=== PATIENT | female | born 1955 | race American Indian/Alaskan Native ===

== ENCOUNTER 2020-01-30 10:41 | Emergency (ER) | payer MEDICARE ==
--- NOTE | 2020-01-30 11:08 | Emergency Department Report ---
ED Neuro Deficit HPI - General Stated Complaint: STROKE Time Seen by Provider: 01/30/20 10:46 Source: patient, EMS, old records reviewed Mode of arrival: Stretcher Limitations: Altered Mental Status - History of Present Illness Initial Comments: Mrs. Dorantes is a 64 yo female with hx of IDD, DM, gait disorder, GERD, overactive bladder, breast CA, OA, pseudobulbar affect disorder, latent TB who presents from day program via EMS with lethargy, facial droop and slurred speech. Patient is currently nonverbal but will follow commands. Last well- known time 8:30 AM -: This morning Location: speech, left face Place: other (Symptoms discovered at PCPs office) Severity: moderate Quality: weak Improves With: none Worsens With: none Context: sudden onset - Related Data Home Medications: Home Medications Medication Instructions Recorded Confirmed Last Taken Divalproex Sodium [Divalproex 500 mg PO BID 04/14/16 01/30/20 09/30/16 Sodium ER] Dextromethorphan HBr/Quinidine 1 cap PO BID 09/30/16 01/30/20 09/30/16 [Nuedexta 20-10 mg Capsule] Docusate Sodium [Move It Along] 100 mg PO BID 09/30/16 01/30/20 09/30/16 Omeprazole 40 mg PO QDAY 09/30/16 01/30/20 09/30/16 Pravastatin Sodium 40 mg PO QDAY 09/30/16 01/30/20 09/30/16 Previous Rx's Medication Instructions Recorded Last Taken Type Buspirone HCl 10 mg PO TID #90 12/24/15 09/30/16 Rx Divalproex Sodium [Divalproex 250 mg PO BID #60 tab.er.24h 12/24/15 09/30/16 Rx Sodium ER] LORazepam [Ativan] 0.5 mg PO BID #60 tablet 12/24/15 09/30/16 Rx LORazepam [Ativan] 1 mg PO QDAY #30 tablet 12/24/15 09/29/16 Rx Meloxicam 15 mg PO QDAY #30 tablet 12/24/15 09/30/16 Rx Oxybutynin Xl [Ditropan Xl] 10 mg PO DAILY #30 tablet 12/24/15 09/30/16 Rx Quetiapine Fumarate [SEROquel XR] 200 mg PO TID #90 tab.er.24h 12/24/15 09/30/16 Rx hydroCHLOROthiazide [HCTZ] 12.5 mg PO QDAY #30 capsule 12/24/15 09/30/16 Rx metFORMIN [Glucophage] 500 mg PO BID #60 tablet 12/24/15 09/30/16 Rx cephALEXin [Keflex] 500 mg PO Q6HR 7 Days #28 capsule 01/30/20 Unknown Rx Allergies/Adverse Reactions: Allergies Allergy/AdvReac Type Severity Reaction Status Date / Time No Known Allergies Allergy Verified 04/15/16 11:37 ED Review of Systems ROS: Stated complaint: STROKE Other details as noted in HPI Comment: Unobtainable due to pts medical conditions (Altered mental status currently nonverbal) ED Past Medical Hx - Past Medical History Previous Medical History?: Yes Hx Diabetes: Yes Hx GERD: Yes Hx Seizures: Yes Hx Dementia: Yes Hx HIV: No Additional medical history: fractured hip , mental retardation - Social History Smoking Status: Never Smoker - Medications Home Medications: Home Medications Medication Instructions Recorded Confirmed Last Taken Type Buspirone HCl 10 mg PO TID #90 12/24/15 01/30/20 09/30/16 Rx Divalproex Sodium [Divalproex 250 mg PO BID #60 tab.er.24h 12/24/15 01/30/20 09/30/16 Rx Sodium ER] LORazepam [Ativan] 0.5 mg PO BID #60 tablet 12/24/15 01/30/20 09/30/16 Rx LORazepam [Ativan] 1 mg PO QDAY #30 tablet 12/24/15 01/30/20 09/29/16 Rx Meloxicam 15 mg PO QDAY #30 tablet 12/24/15 01/30/20 09/30/16 Rx Oxybutynin Xl [Ditropan Xl] 10 mg PO DAILY #30 tablet 12/24/15 01/30/20 09/30/16 Rx Quetiapine Fumarate [SEROquel XR] 200 mg PO TID #90 tab.er.24h 12/24/15 01/30/20 09/30/16 Rx hydroCHLOROthiazide [HCTZ] 12.5 mg PO QDAY #30 capsule 01/27/16 03/04/20 11/03/16 Rx metFORMIN [Glucophage] 500 mg PO BID #60 tablet 12/24/15 01/30/20 09/30/16 Rx Divalproex Sodium [Divalproex 500 mg PO BID 04/14/16 01/30/20 09/30/16 History Sodium ER] Dextromethorphan HBr/Quinidine 1 cap PO BID 09/30/16 01/30/20 09/30/16 History [Nuedexta 20-10 mg Capsule] Docusate Sodium [Move It Along] 100 mg PO BID 09/30/16 01/30/20 09/30/16 History Omeprazole 40 mg PO QDAY 09/30/16 01/30/20 09/30/16 History Pravastatin Sodium 40 mg PO QDAY 09/30/16 01/30/20 09/30/16 History cephALEXin [Keflex] 500 mg PO Q6HR 7 Days #28 capsule 01/30/20 Unknown Rx ED Neuro Physical Exam - General Limitations: Language Barrier, Altered Mental Status General appearance: in no apparent distress, lethargic Suspected Stroke: Yes - Head Head exam: Present: atraumatic, normocephalic - Eye Eye exam: Present: normal appearance - ENT ENT exam: Present: mucous membranes moist - Neck Neck exam: Present: normal inspection - Respiratory Respiratory exam: Present: normal lung sounds bilaterally. Absent: respiratory distress, wheezes, rales, rhonchi - Cardiovascular Cardiovascular Exam: Present: regular rate, normal rhythm, normal heart sounds. Absent: systolic murmur, diastolic murmur, rubs, gallop - GI/Abdominal GI/Abdominal exam: Present: soft, normal bowel sounds. Absent: distended, tenderness, guarding, rebound - Extremities Exam Extremities exam: Present: normal inspection - Neurological Exam Neurological exam: Present: altered - NIHSS Assessment Interval: Baseline 1a. Level of Consciousness: arousable/minor stimuli 1b. LOC Questions: aphasic 1c. LOC Commands: performs tasks correctly 2. Best Gaze: normal 3. Visual: no visual loss 4. Facial Palsy: normal symmetrical movement 5b. Motor Arm Right: no drift 5a. Motor Arm Left: no drift 6a. Motor Leg Left: no drift 6b. Motor Leg Right: no drift 7. Limb Ataxia: absent 8. Sensory: normal 9. Best Language: severe aphasia 10. Dysarthria: severe dysarthria 11. Extinction/Inattention: no abnormality Total Score: 7 Stroke Severity: Moderate Stroke - Psychiatric Psychiatric exam: Present: normal affect, normal mood - Skin Skin exam: Present: warm, dry, intact, normal color. Absent: rash ED Course Vital Signs 01/30/20 11:26 Temperature 98.1 F Pulse Rate 101 H Respiratory 23 Rate Blood Pressure 145/69 [Left] O2 Sat by Pulse 96 Oximetry - Lab Data Result diagrams: 01/30/20 11:08 01/30/20 11:08 Lab Results 01/30/20 01/30/20 01/30/20 Range/Units 11:08 11:08 11:19 WBC 12.2 H (4.5-11.0) K/mm3 RBC 3.35 L (3.65-5.03) M/mm3 Hgb 10.7 (10.1-14.3) gm/dl Hct 32.3 (30.3-42.9) % MCV 97 (79-97) fl MCH 32 (28-32) pg MCHC 33 (30-34) % RDW 15.3 H (13.2-15.2) % Plt Count 244 (140-440) K/mm3 Lymph % (Auto) 7.2 L (13.4-35.0) % [place] % (Auto) 8.3 H (0.0-7.3) % Eos % (Auto) 0.0 (0.0-4.3) % Baso % (Auto) 0.0 (0.0-1.8) % Lymph # 0.9 L (1.2-5.4) K/mm3 [place] # 1.0 H (0.0-0.8) K/mm3 Eos # 0.0 (0.0-0.4) K/mm3 Baso # 0.0 (0.0-0.1) K/mm3 Seg Neutrophils % 84.5 H (40.0-70.0) % Seg Neutrophils # 10.3 H (1.8-7.7) K/mm3 PT 12.8 (12.2-14.9) Sec. INR 0.95 (0.87-1.13) APTT 26.3 (24.2-36.6) Sec. Thrombin Time 18.0 (15.1-19.6) Sec. Sodium 140 (137-145) mmol/L Potassium 4.4 (3.6-5.0) mmol/L Chloride 98.1 (98-107) mmol/L Carbon Dioxide 22 (22-30) mmol/L Anion Gap 24 mmol/L BUN 18 H (7-17) mg/dL Creatinine 0.7 (0.7-1.2) mg/dL Estimated GFR > 60 ml/min BUN/Creatinine Ratio 26 % Glucose 116 H (65-100) mg/dL POC Glucose (70-105) Calcium 10.2 (8.4-10.2) mg/dL Total Bilirubin < 0.20 (0.1-1.2) mg/dL AST 30 (5-40) units/L ALT 36 (7-56) units/L Alkaline Phosphatase 112 (35-129) units/L Troponin T < 0.010 (0.00-0.029) ng/mL Total Protein 8.1 (6.3-8.2) g/dL Albumin 3.5 L (3.9-5) g/dL Albumin/Globulin Ratio 0.8 % 03//20 Range/Units 11:34 WBC (4.5-11.0) K/mm3 RBC (3.65-5.03) M/mm3 Hgb (10.1-14.3) gm/dl Hct (30.3-42.9) % MCV (79-97) fl MCH (28-32) pg MCHC (30-34) % RDW (13.2-15.2) % Plt Count (140-440) K/mm3 Lymph % (Auto) (13.4-35.0) % [place] % (Auto) (0.0-7.3) % Eos % (Auto) (0.0-4.3) % Baso % (Auto) (0.0-1.8) % Lymph # (1.2-5.4) K/mm3 [place] # (0.0-0.8) K/mm3 Eos # (0.0-0.4) K/mm3 Baso # (0.0-0.1) K/mm3 Seg Neutrophils % (40.0-70.0) % Seg Neutrophils # (1.8-7.7) K/mm3 PT (12.2-14.9) Sec. INR (0.87-1.13) APTT (24.2-36.6) Sec. Thrombin Time (15.1-19.6) Sec. Sodium (137-145) mmol/L Potassium (3.6-5.0) mmol/L Chloride (98-107) mmol/L Carbon Dioxide (22-30) mmol/L Anion Gap mmol/L BUN (7-17) mg/dL Creatinine (0.7-1.2) mg/dL Estimated GFR ml/min BUN/Creatinine Ratio % Glucose (65-100) mg/dL POC Glucose 102 (70-105) Calcium (8.4-10.2) mg/dL Total Bilirubin (0.1-1.2) mg/dL AST (5-40) units/L ALT (7-56) units/L Alkaline Phosphatase (35-129) units/L Troponin T (0.00-0.029) ng/mL Total Protein (6.3-8.2) g/dL Albumin (3.9-5) g/dL Albumin/Globulin Ratio % 01/30/20 11:54 EKG obtained 1149 Normal sinus rhythm rate 95 bpm normal axis normal QT interval no ST elevation - Radiology Data Radiology results: report reviewed CT head: No acute findings, AP portable chest x-ray: No acute findings - Medical Decision Making Ms. Dorantes presents with altered mental status. I and neurologist agree that no indication of TIA or CVA on current exam. enrollment manager from [facility] arrived. Collateral history was extremely helpful. Recently Ms. Dorantes has had cough. At the daycare program today she was more lethargic. It appeared that her heart rate had increased. She had difficulty transferring from the toilet to the wheelchair. She generally needs assistance with transfers and ambula tion. Mostly she is wheelchair. She is currently at her baseline. This morning she was in her normal state of health. Currently she is in her normal state of health. Patient is currently answering yes/no questions. I will prescribe cephalexin for possible bronchitis or urinary tract infection. Work-up unremarkable with exception of mild leukocytosis. Critical care attestation.: If time is entered above; I have spent that time in minutes in the direct care of this critically ill patient, excluding procedure time. ED Disposition Clinical Impression: Generalized weakness, Acute bronchitis Disposition: DC- TO HOME OR SELFCARE Is pt being admited?: No Does the pt Need Aspirin: No Condition: Stable Instructions: Weakness (ED) Prescriptions: cephALEXin [Keflex] 500 mg PO Q6HR 7 Days #28 capsule Referrals: PRIMARY CARE, [Primary Care Provider] - 3-5 Days
--- NOTE | 2020-01-30 11:18 | Consultation ---
History of Present Illness Consult date: 01/30/20 Medications and Allergies Allergies Allergy/AdvReac Type Severity Reaction Status Date / Time No Known Allergies Allergy Verified 04/15/16 11:37 Home Medications Medication Instructions Recorded Confirmed Last Taken Type Buspirone HCl 10 mg PO TID #90 12/24/15 09/30/16 09/30/16 Rx Divalproex Sodium [Divalproex 250 mg PO BID #60 tab.er.24h 12/24/15 09/30/16 09/30/16 Rx Sodium ER] LORazepam [Ativan] 0.5 mg PO BID #60 tablet 12/24/15 09/30/16 09/30/16 Rx LORazepam [Ativan] 1 mg PO QDAY #30 tablet 12/24/15 09/30/16 09/29/16 Rx Meloxicam 15 mg PO QDAY #30 tablet 12/24/15 09/30/16 09/30/16 Rx Oxybutynin Xl [Ditropan Xl] 10 mg PO DAILY #30 tablet 12/24/15 09/30/16 09/30/16 Rx Quetiapine Fumarate [SEROquel XR] 200 mg PO TID #90 tab.er.24h 12/24/15 09/30/16 09/30/16 Rx hydroCHLOROthiazide [HCTZ] 12.5 mg PO QDAY #30 capsule 12/24/15 09/30/16 09/30/16 Rx metFORMIN [Glucophage] 500 mg PO BID #60 tablet 12/24/15 09/30/16 09/30/16 Rx Divalproex Sodium [Divalproex 500 mg PO BID 04/14/16 09/30/16 09/30/16 History Sodium ER] Dextromethorphan HBr/Quinidine 1 cap PO BID 09/30/16 09/30/16 09/30/16 History [Nuedexta 20-10 mg Capsule] Docusate Sodium [Move It Along] 100 mg PO BID 09/30/16 09/30/16 09/30/16 History Omeprazole 40 mg PO QDAY 09/30/16 09/30/16 09/30/16 History Pravastatin Sodium 40 mg PO QDAY 09/30/16 09/30/16 09/30/16 History Results - Laboratory Findings CBC and BMP: 01/30/20 11:08 Assessment and Plan [facility] Date of Service: 01/30/2020 10:34:48 Impression: Encephalopathy Comments/Sign-Out: Patient is a 64 years old woman who presents to the ED after she became lethargic and the staff at the day care facility noticed slurred speech and left side weakness. On exam upon return from CT scan, patient is drowsy but able to follow simple verbal commands. There's generalized weakness but no focal findings appreciated. Non contrast CTH showed no acute abnormalities. Presentation appears more consistent with an encephalopathy. Recommend admission for further work-up. Metrics: Last Known Well: 01/30/2020 08:30:00 [facility] Notification Time: 01/30/2020 10:34:06 Arrival Time: 01/30/2020 10:41:00 Stamp Time: 01/30/2020 10:34:48 Time First Login Attempt: 01/30/2020 10:39:00 Video Start Time: 01/30/2020 10:39:00 Symptoms: Slurred speech and left side weakness NIHSS Start Assessment Time: 01/30/2020 11:04:33 Patient is not a candidate for tPA. Patient was not deemed candidate for tPA thrombolytics because of presentation less consistent with stroke. Video End Time: 01/30/2020 11:14:11 CT head showed no acute hemorrhage or acute core infarct. Clinical Presentation is not Suggestive of Large Vessel Occlusive Disease, Patient is not a Candidate for Thrombectomy ED Physician notified of diagnostic impression and management plan on 01/30/2020 11:13:00 Our recommendations are outlined below. Recommendations: Activate Stroke Protocol Admission/Order Set Stroke/Telemetry Floor Neuro Checks Bedside Swallow Eval DVT Prophylaxis IV Fluids, Normal Saline Head of Bed Below 30 Degrees Euglycemia and Avoid Hyperthermia (PRN Acetaminophen) Recommended Scan: MRI Head Without Contrast Lipid Panel to Be Obtained, if Not Done in the Last 30 Days Therapies: Physical Therapy, Occupational Therapy, Speech Therapy Assessment When Applicable Dysphaghia Screen: Swallow Evaluation, Bedside Disposition: Follow up with Teleneurology Follow up Sign Out: Discussed with Emergency Department Provider History of Present Illness: Patient is a 64 year old Female. Patient was brought by EMS for symptoms of Slurred speech and left side weakness Patient is a 64 years old woman with PMHx of psych illness who presents to ED from a day care facility after their staff noticed slurred speech and left side weakness that started at 8:30. No other history is available at this time. She has no prior history of stroke. CT head showed no acute hemorrhage or acute core infarct. Last seen normal was within 4.5 hours. There is no history of Recent Anticoagulants. There is no history of recent major surgery. Examination: 1A: Level of Consciousness - Arouses to minor stimulation + 1 1B: Ask Month and Age - Could Not Answer Either Question Correctly + 2 1C: Blink Eyes & Squeeze Hands - Performs Both Tasks + 0 2: Test Horizontal Extraocular Movements - Normal + 0 3: Test Visual Armendariz - No Visual Loss + 0 4: Test Facial Palsy (Use Grimace if Obtunded) - Normal symmetry + 0 5A: Test Left Arm Motor Drift - Drift, hits bed + 2 5B: Test Right Arm Motor Drift - Drift, hits bed + 2 6A: Test Left Leg Motor Drift - Some Effort Against [place] + 2 6B: Test Right Leg Motor Drift - Some Effort Against [place] + 2 7: Test Limb Ataxia (FNF/Heel-Pedraza) - Does Not Understand + 0 8: Test Sensation - Normal; No sensory loss + 0 9: Test Language/Aphasia - Normal; No aphasia + 0 10: Test Dysarthria - Normal + 0 11: Test Extinction/Inattention - No abnormality + 0 NIHSS Score: 11 Patient was informed the Neurology Consult would happen via TeleHealth consult by way of interactive audio and video telecommunications and consented to receiving care in this manner. Due to the immediate potential for life-threatening deterioration due to underlying acute neurologic illness, I spent 35 minutes providing critical care. This time includes time for face to face visit via telemedicine, review of medical records, imaging studies and discussion of findings with providers, the patient and/or family. Dr Stella White [facility] Case [id number]
--- NOTE | 2020-01-30 11:35 | Cat Scan Report ---
CT head/brain wo con INDICATION / CLINICAL INFORMATION: 64 years Female; lethargy slurred speech facial droop. TECHNIQUE: Routine CT head without contrast. All CT scans at this location are performed using CT dos e reduction for ALARA by means of automated exposure control. COMPARISON: None. FINDINGS: BRAIN / INTRACRANIAL CONTENTS: There is thickening of the calvarium with hyperostosis frontalis inter na. There is also marked cerebellar atrophy and the combination of findings may be seen with long-ter m antiepileptic medication; correlation would be. There is also developmental magna cisterna magna. The calvarial thickening results in beam hardening artifact. However, there appears be mild cerebral white matter disease most consistent with microvascular angiopathy. There is prominence of the ventri cular system which may be out of proportion to the degree of cerebral atrophy though the sulci may be effaced related to the thickening of the calvarium and correlation would be needed. There is no defi nitive CT evidence of acute intracranial hemorrhage. ORBITS: There is heterogeneous attenuation involving right optic globe with mild deformity and foci o f calcification. 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 SINUSES / MASTOIDS: There is mild mucosal thickening within the visualized ethmoid air cells. CRANIOCERVICAL JUNCTION: No significant abnormality. ADDITIONAL FINDINGS: None. IMPRESSION: 1. There is marked cerebellar atrophy and prominence of the calvarium as a detailed above. 2. There is prominence of the ventricular system, also detailed above. 3. There appears to be mild microvascular angiopathy without CT evidence of acute intracranial hemorr lorie. The study was specified as code stroke and called emergently to Dr. Cotto in the ER at 10:29 AM Cent [facility] standard time. Signer Name: Omer Chavez MD Signed: 01/30/2020 11:31 AM Workstation Name: [id number]
[2020-01-30 11:39] LABS: Hematocrit 32.3 % (30.3-42.9); Hemoglobin 10.7 gm/dl (10.1-14.3); Lymphocytes # (Auto) 0.9 K/mm3 (1.2-5.4); Lymphocytes % (Auto) 7.2 % (13.4-35.0); Mean Corpuscular HGB Conc 33 % (30-34); Mean Corpuscular Volume 97 fl (79-97); Monocytes % (Auto) 8.3 % (0.0-7.3); Platelet Count 244 K/mm3 (140-440); Red Blood Count 3.35 M/mm3 (3.65-5.03); Red Cell Distribution Width 15.3 % (13.2-15.2)
[2020-01-30 11:50] LABS: INR 0.95 (0.87-1.13)
--- NOTE | 2020-01-30 11:50 | XRay Report ---
CHEST 1 VIEW INDICATION: stroke. COMPARISON: 01/01/2016 FINDINGS: Support devices: None. Heart: Normal. Lungs/Pleura: There are low lung volumes. This may account at least in part for prominent interstitia l markings bilaterally. No consolidation, significant effusion, or pneumothorax. IMPRESSION: 1. Nonspecific diffuse increased interstitial markings may be due at least in part to low lung volume s. Signer Name: Marv Palacio MD Signed: 01/30/2020 11:46 AM Workstation Name: [id number]
[2020-01-30 11:51] LABS: Partial Thromboplastin Time 26.3 Sec. (24.2-36.6)
[2020-01-30 12:00] LABS: Alanine Aminotransferase 36 units/L (7-56); Albumin 3.5 g/dL (3.9-5); BUN/Creatinine Ratio 26; Blood Urea Nitrogen 18 mg/dL (7-17); Calcium 10.2 mg/dL (8.4-10.2); Hemolysis Index 10
[2020-01-30 15:52] VITALS: BP 152/62
== END 2020-01-30 15:52 | disposition home or self-care (01) ==
LOC: ED 10:41
DX: R53.1 Weakness (principal); J20.9 Acute bronchitis, unspecified; E11.9 Type 2 diabetes mellitus without complications; K21.9 Gastro-esophageal reflux disease without esophagitis; G40.909 Epilepsy, unspecified, not intractable, without status epilepticus; Z79.899 Other long term (current) drug therapy
CPT/HCPCS: 36415; 70450; 71045; 80053; 82962; 84484; 85025; 85610; 85670; 85730; 93005; 93010

== ENCOUNTER 2022-05-20 08:13 | Day surgery (SDC) | payer MEDICARE ==
[~2022-05-20 08:13] MED LIST: SODIUM CHLORIDE 0.9% 1000 ML 1,000 ML IV SCH
--- NOTE | 2022-05-20 09:27 | Anesthesia Consultation ---
Anesthesia Consult and Med Hx Date of service: 05/20/22 - Airway Anesthetic Teeth Evaluation: Edentulous ROM Head & Neck: Adequate Mental/Hyoid Distance: Adequate Mallampati Class: Class II Intubation Access Assessment: Probably Good - Pulmonary Exam CTA: Yes - Cardiac Exam Cardiac Exam: RRR - Pre-Operative Health Status ASA Pre-Surgery Classification: ASA3 Proposed Anesthetic Plan: General, MAC - Pulmonary Hx Smoking: No Hx Sleep Apnea: No - Cardiovascular System Hx Hypertension: Yes (no medications today) Hx Cardia Arrhythmia: No - Central Nervous System Hx Seizures: Yes Hx Psychiatric Problems: Yes (dementia, MENTALLY DELAYED) - Gastrointestinal Hx Gastroesophageal Reflux Disease: Yes - Other Systems Hx Cancer: Yes (h/o mastectomy due to cancer) Hx Obesity: Yes - Additional Comments Anesthesia Medical History Comments: No h/o GAC. No FHAC.
--- NOTE | 2022-05-20 09:28 | Anesthesia Day of Surgery ---
Anesthesia Day of Surgery - Day of Surgery Patient Examined: Yes Patient H&P Reviewed: Yes Patient is NPO: Yes
[2022-05-20] MEDS ORDERED: LIDOCAINE MPF (2%) 20 MG/1 ML VIAL 5 ML ONE (10:03)
[2022-05-20] MEDS ORDERED: propofoL 200 MG/20 ML VIAL IV ONE (10:04)
[2022-05-20] MEDS ORDERED: WATER FOR IRRIG STERILE 1,000 ML BOTTLE ONE (10:27)
--- NOTE | 2022-05-20 12:44 | Post Anesthesia Evaluation ---
- Post Anesthesia Evaluation Patient Participated: Yes Airway Patent: Yes Stable Respiratory Function: Yes Nausea/Vomiting: No Temp > 96.8F: Yes Pain Manageable: Yes Adequeate Hydration: Yes Anesthesia Complications: No
--- NOTE | 2022-05-20 13:41 | Operative Report ---
Operative Report Operative Report: DATE: 05/20/2022 Esophagogastroduodenoscopy with multiple mucosal biopsies. ATTENDING PHYSICIAN: Davonte Goddard M.D. RICKSHAW DRIVER: Davonte Goddard M.D. INDICATION: Patient is a 66-year-old female who presents with history of recurrent epigastric pain with chest pain, indigestion, history of weight loss, history of bloating with intestinal gas/dyspepsia. An upper endoscopy is done to assess patient so that treatment may be directed based on the findings. CONSENT: Informed consent was obtained after the patient was advised regarding the nature of this procedure, its indications, potential benefits as well as possible complications including but not limited to bleeding, perforation, adverse reaction to medications, infection as well as cardiopulmonary complications. An informed written and verbal consent was then obtained after due opportunity was provided for questions and answers. MONITORING: Patient monitored continuously with pulse oximetry, electrocardiographic recordings as well as automatic blood pressure recordings. Patient remained stable throughout the procedure with no untoward events. PREOPERATIVE ASSESSMENT: Patient was assessed immediately prior to this procedure for capacity to tolerate moderate sedation/monitored anesthesia care. [place] anesthesiology association classification is 3. Mallampatti class is 2. Hyomental distance is 3. INSTRUMENT: Olympus video endoscope CIF Q160. MEDICATIONS: Propofol given intravenously in divided doses. For details, please refer to anesthesia records. DESCRIPTION OF PROCEDURE: Patient was placed in the left lateral decubitus position, after achieving sedation, the endoscope was introduced into the esophagus and advanced under direct visualization into the stomach and then to the second portion of the duodenum. Color texture mucosa and anatomy of the upper gastrointestinal tract was carefully examined with the endoscope which was then gently withdrawn with careful inspection of all mucosa surfaces. The patient tolerated the procedure well with no complications. After completion of the examination, patient was transferred to the recovery room. The preparation was fair. The following findings were noted. FINDINGS: The esophagus was relatively normal the Z line was irregular of 38 cm. There was erythema in the gastric Antrum. Biopsy of the gastric Antrum were obtained for histopathology. The pylorus was normal. The duodenum was normal to the second portion. IMPRESSION: Irregulars Z line Gastric antral erythema PLAN: Continue current measures Follow pathology from the gastric antral biopsies and direct treatment accordingly Colonoscopy was to be done but was deferred due to poor prep
[2022-05-20 14:01] VITALS: BP 146/77
== END 2022-05-20 11:30 | disposition home or self-care (01) ==
LOC: GIO 08:13
PROVIDERS: ATTEND Internal Medicine Gastroenterology
DX: R10.13 Epigastric pain (principal); R07.89 Other chest pain; K29.70 Gastritis, unspecified, without bleeding; K31.89 Other diseases of stomach and duodenum; F03.90 Unspecified dementia, unspecified severity, without behavioral disturbance, psychotic disturbance, mood disturbance, and anxiety; E78.00 Pure hypercholesterolemia, unspecified; I10 Essential (primary) hypertension; K21.9 Gastro-esophageal reflux disease without esophagitis; E66.9 Obesity, unspecified; F31.9 Bipolar disorder, unspecified; F41.9 Anxiety disorder, unspecified; Z79.899 Other long term (current) drug therapy; Z79.84 Long term (current) use of oral hypoglycemic drugs; Z68.27 Body mass index [BMI] 27.0-27.9, adult; Z98.890 Other specified postprocedural states; Z90.10 Acquired absence of unspecified breast and nipple
CPT/HCPCS: 43239; 82962; 88305; 88342; J2704; J7030